=== PATIENT | female | born 1960 | race Caucasian/White ===

== ENCOUNTER → 2017-05-18 | Day surgery (SDC) | payer OTHER ==
[~2017-05-18] MED LIST: GLUCAGON,HUMAN RECOMBINANT 1 MG VIAL IVP ONE; GLUCAGON,HUMAN RECOMBINANT 1 MG VIAL ONE; LORazepam 2 MG/ML INJ IVP ONE; NALOXONE HCL 0.4 MG/ML INJ IVP PRN; ONDANSETRON 4 MG/2 ML VIAL IVP PRN; PROMETHAZINE HCL 25 MG/ML INJ IVP PRN; PROPOFOL 200 MG/20 ML VIAL ONE; fentaNYL 100 MCG/2 ML INJ IVP PRN; fentaNYL 100 MCG/2 ML INJ ONE
[2017-05-18 20:03] VITALS: RESP 16
[2017-05-18 20:04] VITALS: TEMP 99
--- NOTE | 2017-05-18 21:33 | EDPHY ---
H & P Stated Complaint: esophagitis/blockage, has had this before Time Seen by Provider: 05/18/17 21:27 HPI/ROS: CHIEF COMPLAINT: Food lodged in throat HISTORY OF PRESENT ILLNESS: 57 year old female with chronic esophagitis complaining of stomach pain and gagging secondary to a piece of chicken lodged in her throat since 5pm, 4 hours ago. This has happened in the past, and she had an esophageal dilation in 2012. She is followed by Dr. Angel Mims, supervisor boarding at [place]. Today, she has not been able to pass the food bolus, and is unable to swallow her saliva. She was feeling well prior to this incident. REVIEW OF SYSTEMS: A 10 point review of systems was performed and is negative with the exception of the elements mentioned in the history of present illness. - Personal History Current Tetanus/Diphtheria Vaccine: Unsure - Medical/Surgical History PMH: Esophagitis, Hypothyroid, Hypertension, Macular degeneration, Tonsillectomy Hx Asthma: No Hx Chronic Respiratory Disease: No Hx Diabetes: No Hx Cardiac Disease: No Hx Renal Disease: No Hx Cirrhosis: No Hx Alcoholism: No Hx HIV/AIDS: No Hx Splenectomy or Spleen Trauma: No Other PMH: PMHx: hypothyroid,Hypertension, macular degeneration, esophagitis. PSHx: tonsillectomy - Social History Smoking Status: Never smoked Additional Social History: . Family at bedside. Nonsmoker. Lives in [place]. Retired. - Physical Exam Exam: General Appearance: Alert, gagging and spitting into a cup Eyes: Pupils equal and round, no conjunctival pallor or injection ENT, Mouth: Mucous membranes moist Neck: Normal inspection Respiratory: Lungs are clear to auscultation Cardiovascular: Regular rate and rhythm Gastrointestinal: Epigastric tenderness. Abdomen is soft Neurological: A&O, nonfocal, normal gait Skin: Warm and dry, no rash Extremities: Nontender, no pedal edema Psychiatric: Mood and affect normal Constitutional: Initial Vital Signs Temperature (C) 37.2 C 05/18/17 20:00 Heart Rate 83 05/18/17 20:00 Respiratory Rate 16 05/18/17 20:00 Blood Pressure 150/110 H 05/18/17 20:00 O2 Sat (%) 98 05/18/17 20:00 O2 Delivery Mode Room Air Allergies/Adverse Reactions: metoclopramide HCl [From Reglan] Allergy (Mild, Verified 08/31/15 15:14) penicillin G [Penicillin G] Allergy (Mild, Verified 08/31/15 15:14) Rash ibuprofen [Ibuprofen] Allergy (Verified 08/31/15 15:14) Medical Decision Making ED Course/Re-evaluation: 57 year old female presents with esophageal food impaction. Plan to consult with GI. Plan to administer 1mg IV Glucagon and 0.5mg IV Ativan for symptom relief. 21:[address] Brown, supervisor boarding. He will arrange endoscopy for the patient. There may be a considerable delay. 22:10 Patient has departed for endoscopy. - Data Points Medications Given: Discontinued Medications Glucagon (Glucagen) 1 mg IVP EDNOW ONE Stop: 05/18/17 21:29 Last Admin: 05/18/17 22:24 Dose: Not Given Lorazepam (Ativan Injection) 0.5 mg IVP EDNOW ONE Stop: 05/18/17 21:32 Last Admin: 05/18/17 22:16 Dose: 0.5 mg Departure - Departure Disposition: To OP Cath/Surgery Clinical Impression: Esophageal obstruction due to food impaction Condition: Fair Instructions: Esophageal Foreign Body (ED) Additional Instructions: Follow up as directed by gastroenterology. Referrals: ALBERTO ZURITA [Other] - As per Instructions Cisco Brown MD [Medical Doctor] - As per Instructions Report Scribed for: Jeanette Arenas Report Scribed by: Reema Tolbert Date of Report: 05/18/17 Time of Report: 21:36 Physician Review and Approval Statement: 05/18/17 21:36 Portions of this note were transcribed by a medical lab assistant. I personally performed a history, physical exam, medical decision making, and confirmed accuracy of information the transcribed note.
[2017-05-18 22:26] VITALS: BP 163/106; PULSE 105; O2SAT 100
--- NOTE | 2017-05-18 22:58 | PDCONSULT ---
Client Service And Consulting Manager Note: wrong note
--- NOTE | 2017-05-18 23:01 | PDANEPAE ---
ANE History of Present Illness 57 YO WITH FOOD STUCK IN ESOPHAGUS ANE Past Medical History - Pulmonary History Hx Oxygen in Use at Home: No Hx Sleep Apnea: Yes - Endocrine History Hx Diabetes: No ANE Review of Systems Review of systems is: negative Review of Systems: ANE Patient History - Allergies Allergies/Adverse Reactions: metoclopramide HCl [From Reglan] Allergy (Mild, Verified 08/31/15 15:14) penicillin G [Penicillin G] Allergy (Mild, Verified 08/31/15 15:14) Rash ibuprofen [Ibuprofen] Allergy (Verified 08/31/15 15:14) - Anes Hx Anes Hx: no prior problems - Smoking Hx Smoking Status: Never smoked - Alcohol Use Alcohol Use: Sober ANE Labs/Vital Signs - Vital Signs Blood Pressure: 163/106 Heart Rate: 105 Respiratory Rate: 16 O2 Sat (%): 100 Height: 172.72 cm Weight: 77.111 kg ANE Physical Exam - Airway Neck exam: FROM Mallampati Score: Class 1 Mouth exam: normal dental/mouth exam - Pulmonary Pulmonary: no respiratory distress, clear to auscultation - Cardiovascular Cardiovascular: regular rate and rhythym - ASA Status ASA Status: II ANE Anesthesia Plan Anesthesia Plan: general endotracheal anesthesia
--- NOTE | 2017-05-19 01:22 | GCON ---
[f rep st] CONSULTATION DATE OF CONSULTATION: 05/18/2017 REFERRING PHYSICIAN: Jeanette Arenas MD INDICATION FOR CONSULTATION: Probable foreign body. HISTORY OF PRESENT ILLNESS: The patient is a pleasant 57-year-old female with past medical history significant for eosinophilic esophagitis that has been diagnosed in 2016 by biopsy. She also does have some hypothyroidism, SIBO, sleep apnea on CPAP, and a history of C difficile caused a lot of her GI issues. She has intermittent dysphagia that started a number of weeks ago. She did not understand she should be using fluticasone, swallowed not inhaled, when she has dysphagia for eosinophilic esophagitis. She was eating chicken that was cooked in a crock pot tonight and it got stuck. She was not able to tolerate her saliva. She presented to the emergency room for evaluation and they called me to evaluate and treat in that regard. PAST MEDICAL/SURGICAL HISTORY: Hypothyroidism, SIBO, sleep apnea using CPAP, history of C difficile. She had a laparoscopy for her abdominal distention, tonsillectomy, gallbladder resection. MEDICATIONS: At home include Nature Thyroid, fish oil, multivitamin, and bioidentical hormones. ALLERGIES: To penicillin, Reglan, and ibuprofen. SOCIAL HISTORY: Does not smoke. She drinks alcohol about 3 times a week. It is wine. FAMILY HISTORY: No colon cancer or cColon polyps. Her mother and other family members do have eosinophilic esophagitis. REVIEW OF SYSTEMS: A complete Review of Systems performed is negative other than in HPI. Pertinent negatives include no fevers, chills, sweats. No hematemesis. No diaphoresis. PHYSICAL EXAM: GENERAL: Well developed, well nourished middle-aged female in some distress as she has a foreign body, is unable to tolerate her saliva. VITAL SIGNS: Blood pressure 163/106, pulse 96, respirations 16, 100% on room air, temperature 37.2. EYES: Anicteric. BURT. EOMI. MOUTH: No lesions. Moist membranes. NECK: Supple. No JVD. BACK: No spine tenderness. No CVA tenderness. LUNGS: Clear to auscultation. CARDIAC: S1, S2. Regular rate and rhythm. No murmurs, rubs, gallops appreciated. ABDOMEN: Bowel sounds are normal in pitch and frequency. Soft and nontender. No hepatosplenomegaly. EXTREMITIES: No cyanosis, clubbing, or edema. NEUROLOGIC: Cranial nerves intact. Nonfocal. Alert and oriented x3. LABORATORY DATA: None. Previous endoscopy performed in 2016, revealed concentric rings consistent with eosinophilic esophagitis and biopsies of the esophagus revealed greater than 60 eosinophils per high-powered field. ASSESSMENT: 1. Foreign body related to eosinophilic esophagitis. 2. Hypothyroidism. 3. Small intestinal bacterial overgrowth. 4. Sleep apnea. RECOMMENDATIONS: 1. Urgent EGD to be performed with anesthesia secondary to foreign body secondary to eosinophilic esophagitis. 2. Recommend treatment with fluticasone, swallowed not inhaled. Take off the spacer and press 2 jets into the back of the throat and swallow. Have nothing by mouth for 30 minutes. Do that twice a day, both morning and evening. 3. Follow up with Dr. Mims at [facility]. 4. Further recommendations to follow results of EGD. Thank you for allowing me to participate in this patient's healthcare. Do not hesitate to call me with any questions. Copy requested to: Nadege Gamez MD [facility] Angel Mims MD [facility] /[id number]
== END | disposition home or self-care (01) ==
LOC: FSGY 22:56 → EDSTATUS 22:56
PROVIDERS: ATTEND Internal Medicine Gastroenterology
PROC: 0DB38ZX Excision of Lower Esophagus, Via Natural or Artificial Opening Endoscopic, Diagnostic (ICD-10-PCS; principal; 2017-05-18 23:00)
PROC: 0DC38ZZ Extirpation of Matter from Lower Esophagus, Via Natural or Artificial Opening Endoscopic (ICD-10-PCS; principal; 2017-05-18 23:00)
DX: T18.108A Unspecified foreign body in esophagus causing other injury, initial encounter (principal); K20.0 Eosinophilic esophagitis; G47.30 Sleep apnea, unspecified
CPT/HCPCS: 96374; J1610; J2060; J2704; J3010